=== PATIENT | female | born 1950 ===

== ENCOUNTER 2023-09-01 05:32 | Day surgery (SDC) | payer OTHER ==
[~2023-09-01] VITALS: Ht 157.5 cm; Wt 77.1 kg
[~2023-09-01 05:32] MED LIST: BISOPROLOL-HCT1 EAC2 PO; CRESTOR5 MG PO; HUMULIN 70100 UNIT/1; HYZAAR 100-251 EACH PO; METFORMIN HCL500 M3 PO; PREVACID15 M1 PO
[2023-09-01] MEDS ORDERED: BUPIVACAINE HCL/PF 0.5% 30ML ML ONE (07:16)
[2023-09-01] MEDS ORDERED: CIPROFLOXACIN IN 5 % DEXTROSE 400 MG/200 ML PIGGYBAG IV ONE ×2 (07:17→08:00)
[2023-09-01] MEDS ORDERED: LIDOCAINE HCL/EPINEPHRINE 10MG/ML 1% 50ML IJ ONE (07:17)
[2023-09-01] MEDS ORDERED: BUPIVACAINE HCL 30 ML VIAL IJ ONE (08:15)
[2023-09-01] MEDS ORDERED: TYLENOL ARTHRI650 MG PO (08:39)
[2023-09-01] MEDS ORDERED: TRAMADOL HCL50 MG PO (08:39)
== END 2023-09-01 11:00 | disposition home or self-care (01) ==
LOC: CIR.AMB 05:32
PROVIDERS: ATTEND Surgery
DX: D17.1 Benign lipomatous neoplasm of skin and subcutaneous tissue of trunk (principal); R22.1 Localized swelling, mass and lump, neck; Z88.0 Allergy status to penicillin; Z88.6 Allergy status to analgesic agent; Z20.822 Contact with and (suspected) exposure to COVID-19; E11.9 Type 2 diabetes mellitus without complications; I10 Essential (primary) hypertension